=== PATIENT | female | born 1980 | race Caucasian/White ===

== ENCOUNTER → 2021-07-16 09:37 | Outpatient (CLI) | payer OTHER, SELFPAY ==
--- NOTE | ~2021-07-16 | XR_ITS ---
EXAMINATION: XR knee LT 3V DATE: 07/16/2021 09:55 INDICATION: Chronic left knee pain. TECHNIQUE: 3 views of left knee including standing views were obtained. COMPARISON: None. FINDINGS: Bone alignment is normal. No fracture. There is mild tricompartmental osteoarthritis charac terized by marginal osteophytes. No joint space narrowing. No knee joint effusion. IMPRESSION: 1. Mild left knee osteoarthritis. Reviewed, dictated and finalized at location A.
== END ==
PROVIDERS: PCP Internal Medicine; Visit Provider Internal Medicine
DX: M17.12 Unilateral primary osteoarthritis, left knee (principal); G89.29 Other chronic pain
CPT/HCPCS: 73562

== ENCOUNTER 2021-07-26 15:37 | Emergency (ER) | payer OTHER, SELFPAY ==
[2021-07-26 15:40] VITALS: BP 158/109; PULSE 118; RESP 18; TEMP 36.9; O2SAT 99
--- NOTE | 2021-07-26 16:05 | ED.EAR ---
HPI - Ear Problem General Chief complaint: Ear Stated complaint: right ear pain Time Seen by Provider: 07/26/21 15:43 Source: patient Mode of arrival: ambulatory Limitations: no limitations History of Present Illness HPI Narrative: 41-year-old female presents today with complaints of right ear pain that started on . Patient was seen at urgent care on sent home with amoxicillin and has noted no improvement but actually worse. Upon examination patient tearful due to pain. Right facial swelling noted by ear. Related Data Home Medications Medication Instructions Recorded Confirmed amoxicillin 500 mg capsule cap 07/26/21 07/26/21 Allergies Allergy/AdvReac Type Severity Reaction Status Date / Time No Known Allergies Allergy Verified 07/26/21 15:39 Review of Systems Review of Systems: CONSTITUTIONAL: Denies fever, chills, or sweats. EYES: Denies visual changes, redness, or discharge. ENT: Right otalgia. Denies rhinorrhea, congestion, sore throat. CARDIOVASCULAR: Denies chest pain, palpitations, or edema. RESPIRATORY: Denies cough or dyspnea. GASTROINTESTINAL: Denies abdominal pain, nausea, vomiting, or diarrhea. GENITOURINARY: Denies dysuria or hematuria. SKIN: Denies rash or itching. MUSCULOSKELETAL: Denies back pain, joint pain, or myalgia. NEUROLOGIC: Denies headache, numbness, dizziness, or weakness. PSYCHIATRIC: Denies anxiety or depression. Exam Narrative: GENERAL: Well-appearing, well-nourished, and in no acute distress. HEAD: Normocephalic, atraumatic. EYES: PERRLA and EOMI. ENT: Nares clear, no rhinorrhea or epistaxis. Mucous membranes moist. Oropharynx without tonsillar hypertrophy exudate or other lesions. left ear canal without erythema or exudate. left tympanic membrane pearly plascencia. Right ear canal erythematous, exudate noted, and swelling. Hard to visualize tympanic membrane due to swelling. NECK: Supple. No adenopathy or masses. No carotid bruits or JVD CHEST: Clear to auscultation. No respiratory distress. No wheezes rales or rhonchi HEART: Regular rate and rhythm. No murmur heard. Normal peripheral pulses. ABDOMEN: Soft, nontender, nondistended, normal active bowel sounds. EXTREMITIES: Normal range of motion. No edema. SKIN: Warm, dry, no rash. NEURO: No focal deficits. Alert and oriented x3. PSYCH: Normal mood and affect. Course Vital Signs Vital signs: Vital Signs Temperature 36.9 C 07/26/21 15:40 Pulse Rate 118 H 07/26/21 15:40 Respiratory Rate 18 07/26/21 15:40 Blood Pressure 158/109 H 07/26/21 15:40 Pulse Oximetry 99 07/26/21 15:40 Temperature 36.9 C 07/26/21 15:40 Pulse Rate 118 H 07/26/21 15:40 Respiratory Rate 18 07/26/21 15:40 Blood Pressure 158/109 H 07/26/21 15:40 Pulse Oximetry 99 07/26/21 15:40 Medical Decision Making MDM Narrative Medical decision making narrative: 41-year-old female HPI as noted. Patient currently on amoxicillin for acute otitis media without improvement noted after 4 days. Swelling noted to right ear canal with exudate. Suspect combination of acute otitis externa and acute otitis media. Antibiotics changed to Augmentin and ofloxacin drops. Patient given oral steroid dose here due to significant swelling to right ear canal and swelling anterior to tragus. Differential Diagnosis Differential Diagnosis: Acute otitis externa, acute otitis media, dental abscess, dental caries Vital Signs Vital Signs: Vital Signs Temperature 36.9 C 07/26/21 15:40 Pulse Rate 118 H 07/26/21 15:40 Respiratory Rate 18 07/26/21 15:40 Blood Pressure 158/109 H 07/26/21 15:40 Pulse Oximetry 99 07/26/21 15:40 Temperature 36.9 C 07/26/21 15:40 Pulse Rate 118 H 07/26/21 15:40 Respiratory Rate 18 07/26/21 15:40 Blood Pressure 158/109 H 07/26/21 15:40 Pulse Oximetry 99 07/26/21 15:40 Discharge Plan Discharge Clinical Impression: Otitis externa, Otitis media Patient Dispositio
[2021-07-26] MEDS: HYDROcodone/acetaminophen (*CRX) 5-325 MG TABLET 1 TAB PO (16:23)
[2021-07-26] MEDS: DEXAMETHASONE 2 MG TABLET 6 MG PO (16:24)
[2021-07-26] MEDS: DEXAMETHASONE 4 MG TABLET PO (16:27)
== END 2021-07-26 16:44 | disposition home or self-care (01) ==
PROVIDERS: Emergency Provider Nurse Practitioner Family; PCP Internal Medicine
DX: H66.91 Otitis media, unspecified, right ear (principal); H60.91 Unspecified otitis externa, right ear
CPT/HCPCS: 99283; A9270; J8540